=== PATIENT | female | born 1985 | race African-American/Black ===

== ENCOUNTER 2017-09-22 08:29 | Emergency (ER) | payer OTHER, SELFPAY ==
[2017-09-22] MEDS ORDERED: FLUCONAZOLE 100 MG TAB ONE (09:16)
[2017-09-22] MEDS ORDERED: METOCLOPRAMIDE 10 MG/2mL INJ ONE (09:17)
[2017-09-22] MEDS ORDERED: DIPHENHYDRAMINE 50 MG/ML VIAL ONE (09:17)
[2017-09-22] MEDS ORDERED: CEFTRIAXONE/SWI 1gm 1 GM/10 ML SYR ONE (09:17)
[2017-09-22] MEDS ORDERED: NA CHLORIDE 0.9% 1,000 ML ONE (09:17)
[2017-09-22 09:42] LABS: Urine Blood 1+ (NEG); Urine Glucose NEGATIVE (NEG); Urine Protein NEGATIVE (NEG); Urine Specific Gravity 1.015 (1.005-1.030); Urine pH 5.5 (5.0-7.0)
[2017-09-22 09:45] LABS: Absolute Lymphocytes (CBC) 0.5 K/uL (0.7-4.9); Absolute Monocytes 0.8 K/uL (0.1-1.3); Basophils % 0.1 % (0-1.3); Hematocrit 40.4 % (36.0-45.0); Lymphocytes % 11.7 % (15.3-44.8); MCH 32.4 pg (27.0-35.0); MCV 91.8 fL (80-100); MPV 10.5 fL (7.6-11.3); Monocytes % 17.7 % (3.3-12.3); RBC Red Blood Cell Count 4.39 M/uL (3.86-4.86)
[2017-09-22 09:54] LABS: Urine Bacteria <20 /HPF (<20); Urine Culture Reflex Order REFLEXED; Urine Mucus 1+ /HPF (NONE SEEN); Urine RBC <5 /HPF (NONE SEEN)
[2017-09-22 09:59] LABS: Potassium 3.4 mmol/L (3.5-5.1)
--- NOTE | 2017-09-22 11:08 | EDPHYS ---
Physician Documentation [facility] Name: Farideh Fried Age: 32 yrs Sex: Female : 1985 Arrival Date: 09/22/2017 Time: 08:33 Bed 19 Private MD: None, None ED Physician Mike Newton HPI: 09/22 10:09 This 32 yrs old Black Female presents to ER via Ambulatory with complaints of jr8 Dizziness, Headache. 10:09 Patient stated that she had recent yeast infection that she treated with OTC jr8 medication. Stated that the discharge has stopped but still has itching and now inguinal lymphadenopathy. Stated that she now has headache and blurred vision. Stated that she has been having allergy symptoms as of lately . Severity of symptoms: At their worst the symptoms were moderate in the emergency department the symptoms are unchanged. The patient has not experienced similar symptoms in the past. The patient has not recently seen a physician. AUTOMATIC BUFFER: 08:43 LMP 09/01/2017 tw2 Historical: - Allergies: 08:46 No Known Allergies; tw2 - Home Meds: 08:46 None [Active]; tw2 - PMHx: 08:46 None; tw2 - PSHx: 08:46 None; tw2 - Immunization history:: Adult Immunizations up to date. - Social history:: Smoking status: Patient/guardian denies using tobacco. - Ebola Screening: : Patient denies travel to an Ebola-affected area in the 21 days before illness onset. ROS: 10:09 Eyes: Negative for injury, pain, redness, and discharge, ENT: Negative for injury, jr8 pain, and discharge, Neck: Negative for injury, pain, and swelling, Cardiovascular: Negative for chest pain, palpitations, and edema, Respiratory: Negative for shortness of breath, cough, wheezing, and pleuritic chest pain, Abdomen/GI: Negative for abdominal pain, nausea, vomiting, diarrhea, and constipation, Back: Negative for injury and pain, MS/Extremity: Negative for injury and deformity, Skin: Negative for injury, rash, and discoloration. 10:09 : Positive for urinary symptoms, vaginal itching. 10:09 Neuro: Positive for dizziness, headache, Negative for altered mental status, gait disturbance, hearing loss, loss of consciousness, numbness, seizure activity, speech changes, syncope, near syncope, tingling, tinnitus, tremor, visual changes, weakness. Exam: 10:09 Head/Face: Normocephalic, atraumatic. Eyes: Pupils equal round and reactive to light, jr8 extra-ocular motions intact. Lids and lashes normal. Conjunctiva and sclera are non-icteric and not injected. Cornea within normal limits. Periorbital areas with no swelling, redness, or edema. ENT: Nares patent. No nasal discharge, no septal abnormalities noted. Tympanic membranes are normal and external auditory canals are clear. Oropharynx with no redness, swelling, or masses, exudates, or evidence of obstruction, uvula midline. Mucous membranes moist. Neck: Trachea midline, no thyromegaly or masses palpated, and no cervical lymphadenopathy. Supple, full range of motion without nuchal rigidity, or vertebral point tenderness. No Meningismus. Cardiovascular: Regular rate and rhythm with a normal S1 and S2. No gallops, murmurs, or rubs. Normal PMI, no JVD. No pulse deficits. Respiratory: Lungs have equal breath sounds bilaterally, clear to auscultation and percussion. No rales, rhonchi or wheezes noted. No increased work of breathing, no retractions or nasal flaring. Abdomen/GI: Soft, non-tender, with normal bowel sounds. No distension or tympany. No guarding or rebound. No evidence of tenderness throughout. Lymphadenopathy present bilateral inguinal regions Back: No spinal tenderness. No costovertebral tenderness. Full range of motion. Skin: Warm, dry with normal turgor. Normal color with no rashes, no lesions, and no evidence of cellulitis. MS/ Extremity: Pulses equal, no cyanosis. Neurovascular intact. Full, normal range of motion. Neuro: Awake and alert, GCS 15, oriented to person, place, time, and situation. Cranial nerves II-XII grossly intact. Motor strength 5/5 in all extremities. Sensory grossly intact. Cerebellar exam normal. Normal gait. Vital Signs: 08:43 BP 140 / 102; Pulse 108; Resp 17; Temp 99.8(O); tw2 09:59 BP 134 / 97; Pulse 99; Resp 16; Pulse Ox 100% on R/A; em 11:00 BP 135 / 86; Pulse 101; Resp 16; Pulse Ox 100% on R/A; Pain 3/10; em 11:33 BP 129 / 86; Pulse 103; Resp 17; Temp 99.8(O); Pulse Ox 98% on R/A; Pain 3/10; em MDM: 08:42 Patient medically screened. pearl 11:06 Data reviewed: vital signs, nurses notes, lab test result(s), and as a result, I will jr8 discharge patient. Data interpreted: Pulse oximetry: on room air is 100 %. Interpretation: normal. Counseling: I had a detailed discussion with the patient and/or guardian regarding: the historical points, exam findings, and any diagnostic results supporting the discharge/admit diagnosis, lab results, the need for outpatient follow up, a family practitioner, to return to the emergency department if symptoms worsen or persist or if there are any questions or concerns that arise at home. Response to treatment: the patient's symptoms have markedly improved after treatment. 09/22 08:47 Order name: Urine Microscopic Only; Complete Time: 10:05 8 09/22 09:08 Order name: CBC with Diff; Complete Time: 11:37 [facility] 09/22 09:08 Order name: Basic Metabolic Panel; Complete Time: 10:05 jr8 09/22 09:23 Order name: Urine Dipstick--Ancillary (enter results); Complete Time: 10:05 bd 09/22 09:23 Order name: Urine --Ancillary (enter results); Complete Time: 10:05 bd 09/22 09:56 Order name: Urine Culture EDPR 09/22 08:47 Order name: Urine Test (obtain specimen); Complete Time: 08:48 8 09/22 08:47 Order name: Urine Dipstick-Ancillary (obtain specimen); Complete Time: 08:48 8 09/22 10:00 Order name: CBC Smear Scan; Complete Time: 11:37 EDMS 09/22 09:08 Order name: IV; Complete Time: 09:43 jr8 Administered Medications: 09:41 Drug: Reglan 10 mg Route: IVP; Site: right hand; iw 11:00 Follow up: Response: No adverse reaction; Pain is decreased em 09:41 Drug: Benadryl 25 mg Route: IVP; Site: right hand; iw 10:59 Follow up: Response: No adverse reaction em 09:41 Drug: Rocephin - (cefTRIAXone) 1 grams Route: IVPB; Infused Over: 30 mins; Site: right iw hand; 11:00 Follow up: Response: No adverse reaction em 11:40 Follow up: Response: No adverse reaction; IV Status: Completed infusion; IV Intake: 10mlem 09:43 Drug: NS 0.9% 1000 ml Route: IV; Rate: 1000 ml; Site: right hand; em 10:59 Follow up: IV Status: Completed infusion; IV Intake: 1000ml em 09:57 Drug: DiFLUcan 150 mg Route: PO; em 10:59 Follow up: Response: No adverse reaction em Disposition: 09/22/17 11:07 Discharged to Home. Impression: Migraine, Acute lymphadenitis. - Condition is Stable. - Discharge Instructions: Migraine Headache, Lymphadenopathy. - Prescriptions for Doxycycline Monohydrate 100 mg Oral Tablet - take 1 tablet by ORAL route every 12 hours for 10 days; 20 tablet. - Medication Reconciliation Form, Thank You Letter, Antibiotic Education, Prescription Opioid Use form. - Follow up: Private Physician; When: 5 - 6 days; Reason: Recheck today's complaints, Continuance of care, Re-evaluation by your physician. - Problem is new. - Symptoms have improved. Addendum: 09/23/2017 14:16 Co-signature as Attending Physician, Mike Newton MD I agree with the assessment and c fischer plan of care. Signatures: Dispatcher [employer] Mike Clay MD MD cha Munoz, Edgar, FORM MAKER FORM MAKER em Mar Thakur, MADDIE PERKINS iw Luther Arias PA PA jr8 Jayne Mcclure RN RN tw2 Corrections: (The following items were deleted from the chart) 09/22 11:41 11:07 09/22/2017 11:07 Discharged to Home. Impression: Migraine; Acute lymphadenitis. em Condition is Stable. Forms are Medication Reconciliation Form, Thank You Letter, Antibiotic Education, Prescription Opioid Use. Follow up: Private Physician; When: 5 - 6 days; Reason: Recheck today's complaints, Continuance of care, Re-evaluation by your physician. Problem is new. Symptoms have improved. jr8
--- NOTE | 2017-09-22 11:08 | ER ---
Nurse's Notes [facility] Name: Farideh Fried Age: 32 yrs Sex: Female : 1985 Arrival Date: 09/22/2017 Time: 08:33 Bed 19 Private MD: None, None Diagnosis: Migraine;Acute lymphadenitis Presentation: 09/22 08:42 Presenting complaint: Patient states: "i have a list of complaints: i treated myself tw2 for a yeast infection with monistat, no discharge now just itching and irritation with frequent urination, i am constipated, my lymph nodes in groin are swollen, i feel light headed and dizzy and my vision started to blur last night". Transition of care: patient was not received from another setting of care. Onset of symptoms was September 22, 2017. Risk Assessment: Do you want to hurt yourself or someone else? Patient reports no desire to harm self or others. Initial Sepsis Screen: Does the patient meet any 2 criteria? No. Patient's initial sepsis screen is negative. Does the patient have a suspected source of infection? No. Patient's initial sepsis screen is negative. Care prior to arrival: None. 08:42 Method Of Arrival: Ambulatory tw2 08:42 Acuity: JULIA 3 tw2 Triage Assessment: 09:00 Headache History: Denies prior headaches. General: Appears in no apparent distress. em comfortable. General: Behavior is calm, cooperative. Pain: Also complains of. Pain: Pain began 1 week ago. CARD DOFFER: 08:43 LMP 09/01/2017 tw2 Historical: - Allergies: 08:46 No Known Allergies; tw2 - Home Meds: 08:46 None [Active]; tw2 - PMHx: 08:46 None; tw2 - PSHx: 08:46 None; tw2 - Immunization history:: Adult Immunizations up to date. - Social history:: Smoking status: Patient/guardian denies using tobacco. - Ebola Screening: : Patient denies travel to an Ebola-affected area in the 21 days before illness onset. Screenin:06 Abuse screen: Denies threats or abuse. Nutritional screening: No deficits noted. em Tuberculosis screening: No symptoms or risk factors identified. Fall Risk None identified. Assessment: 09:00 General: Appears in no apparent distress. comfortable, Behavior is calm, cooperative. em Pain: Complains of pain in behind right eye and left eye Pain currently is 8 out of 10 on a pain scale. Neuro: Level of Consciousness is awake, alert, obeys commands, Oriented to person, place, time, situation, Reports dizziness, since 1 week headache. Cardiovascular: Capillary refill < 3 seconds Patient's skin is warm and dry. Respiratory: Airway is patent Respiratory effort is even, unlabored, Respiratory pattern is regular, symmetrical. GI: Reports nausea. : Reports urinary frequency, since 1 week. Derm: Skin is intact, Skin is pink, warm \\T\\ dry. Musculoskeletal: Range of motion: intact in all extremities. 09:15 Reassessment: Patient appears in no apparent distress at this time. I agree with above iw assessment by Get Chavarria LVN. 10:00 Reassessment: Patient appears in no apparent distress at this time. Patient and/or em family updated on plan of care and expected duration. Pain level reassessed. Patient is alert, oriented x 3, equal unlabored respirations, skin warm/dry/pink. Patient states feeling better. Patient states symptoms have improved. 11:00 Reassessment: Patient appears in no apparent distress at this time. Patient and/or em family updated on plan of care and expected duration. Pain level reassessed. Patient is alert, oriented x 3, equal unlabored respirations, skin warm/dry/pink. rates pain 3/10 Patient states feeling better. Vital Signs: 08:43 BP 140 / 102; Pulse 108; Resp 17; Temp 99.8(O); tw2 09:59 BP 134 / 97; Pulse 99; Resp 16; Pulse Ox 100% on R/A; em 11:00 BP 135 / 86; Pulse 101; Resp 16; Pulse Ox 100% on R/A; Pain 3/10; em 11:33 BP 129 / 86; Pulse 103; Resp 17; Temp 99.8(O); Pulse Ox 98% on R/A; Pain 3/10; em ED Course: 08:33 Patient arrived in ED. mr 08:33 None, None is Private Physician. mr 08:40 Luther Arias PA is PHCP. jr8 08:40 Mike Nweton MD is Attending Physician. jr8 08:43 Triage completed. tw2 08:48 Chavarria, Get, PHOTOGRAPHIC ENLARGER OPERATOR is Primary Nurse. em 09:30 No provider procedures requiring assistance completed. Initial lab(s) drawn, by me, em sent to lab. Inserted saline lock: 22 gauge in right hand, using aseptic technique. Blood collected. 10:06 Patient has correct armband on for positive identification. Placed in gown. Bed in low em position. Call light in reach. Adult w/ patient. 10:13 Arm band placed on. em 11:33 IV discontinued, intact, bleeding controlled, No redness/swelling at site. Pressure em dressing applied. Administered Medications: 09:41 Drug: Reglan 10 mg Route: IVP; Site: right hand; iw 11:00 Follow up: Response: No adverse reaction; Pain is decreased em 09:41 Drug: Benadryl 25 mg Route: IVP; Site: right hand; iw 10:59 Follow up: Response: No adverse reaction em 09:41 Drug: Rocephin - (cefTRIAXone) 1 grams Route: IVPB; Infused Over: 30 mins; Site: right iw hand; 11:00 Follow up: Response: No adverse reaction em 11:40 Follow up: Response: No adverse reaction; IV Status: Completed infusion; IV Intake: 10mlem 09:43 Drug: NS 0.9% 1000 ml Route: IV; Rate: 1000 ml; Site: right hand; em 10:59 Follow up: IV Status: Completed infusion; IV Intake: 1000ml em 09:57 Drug: DiFLUcan 150 mg Route: PO; em 10:59 Follow up: Response: No adverse reaction em Intake: 10:59 IV: 1000ml; Total: 1000ml. em 11:40 IV: 10ml; Total: 1010ml. em Outcome: 11:07 Discharge ordered by jrAusten 11:34 Discharged to home ambulatory, with family. em 11:34 Condition: good 11:34 Discharge instructions given to patient, family, Instructed on discharge instructions, follow up and referral plans. medication usage, Demonstrated understanding of instructions, follow-up care, medications, Prescriptions given X 1. 11:41 Patient left the ED. em Addendum: 09/26/2017 13:40 Addendum: Culture Results: Positive urine culture. Bacteria is resistant to, has i w intermediate sensitivity, or is not tested against prescribed antibiotics. Report given to THERESA for further evaluation and then to material handling technician for follow up with patient. Phone call Attempt #1 pt still having burning with urination Prescription called-in to pharmacy of choice. [facility], Penicillin VK 500 mg PO BID, #20. Signatures: Ainsley Barajas Edgar, PHOTOGRAPHIC ENLARGER OPERATOR PHOTOGRAPHIC ENLARGER OPERATOR Mar Davalos, RN RN iw Luther Arias PA PA jr8 Jayne Mcclure RN RN tw2
[2017-09-22 11:33] LABS: Blood Morphology Comment NOT SEEN (NOT SEEN); Platelet Estimate ADEQ; Urine White Blood Cell Casts OK
== END 2017-09-22 11:41 | disposition home or self-care (01) ==
LOC: ER 08:29
DX: G43.909 Migraine, unspecified, not intractable, without status migrainosus (principal); L04.9 Acute lymphadenitis, unspecified
CPT/HCPCS: 36415; 80048; 81003; 81015; 81025; 85025; 87077; 87086; 87088; 87186; 96365; 96366; 96375; 99284; J0696; J2765; J7030